=== PATIENT | male | born 1955 | race African-American/Black ===

== ENCOUNTER 2023-12-31 18:33 | Inpatient (IN) | payer OTHER ==
[2023-12-31 19:19] VITALS: BMI 22.3
[2023-12-31] MEDS ORDERED: BENZONATATE 200 MG CAPSULE PO PRN (19:47)
[2023-12-31] MEDS ORDERED: IBUPROFEN 400 MG TABLET (FP) PO PRN (19:47)
[2023-12-31] MEDS ORDERED: IBUPROFEN 600 MG TABLET (FP) PO PRN (19:47)
[2023-12-31] MEDS ORDERED: ACETAMINOPHEN 325 MG TABLET (FP) PO PRN (19:47)
[2023-12-31] MEDS ORDERED: BISMUTH SUBSALICYLATE 524 MG/30 ML PO PRN (19:47)
[2023-12-31] MEDS ORDERED: LOPERAMIDE HCL 2 MG CAPSULE PO PRN (19:47)
[2023-12-31] MEDS ORDERED: guaiFENesin 600 MG TABLET.ER (FP) PO PRN (19:47)
[2023-12-31] MEDS ORDERED: NICOTINE POLACRILEX 2 MG GUM BUC PRN (19:47)
[2023-12-31] MEDS ORDERED: BENZOCAINE/MENTHOL (CHLORASEPTIC ) LOZENGE MM PRN (19:47)
[2023-12-31] MEDS ORDERED: ONDANSETRON *ODT* 4 MG TABLET SL PRN (19:47)
[2023-12-31] MEDS ORDERED: POLYETHYLENE GLYCOL (HEALTHYLAX) 3350 17 GM PACKET PO PRN (19:47)
[2023-12-31] MEDS ORDERED: MAGNESIUM HYDROX 2400MG/30ML ORAL SUSPENSION 30 ML CUP PO PRN (19:47)
[2023-12-31] MEDS ORDERED: NICOTINE POLACRILEX 2 MG LOZENGE BC PRN (19:47)
[2023-12-31] MEDS ORDERED: MAG HYDROX/AL HYDROX/SIMETH 30 ML UNIT-DOSE CUP PO PRN (19:47)
[2023-12-31] MEDS: THIAMINE 100 MG TABLET PO SCH (22:06)
[2023-12-31] MEDS: MELATONIN 5 MG TABLETS PO SCH (22:07)
[2024-01-01] MEDS: HYDROCHLOROTHIAZIDE 12.5 MG CAPSULE (FP) PO SCH (10:35)
[2024-01-01] MEDS: PRENATAL VITAMINS W/ FOLIC ACID TABLET (FP) PO SCH (10:36)
[2024-01-01] MEDS ORDERED: diazePAM 5 MG TABLET PO PRN (10:42)
[2024-01-01] MEDS: cloNIDine HCL 0.1 MG TABLET PO ONE (11:20)
[2024-01-01] MEDS: diazePAM 5 MG TABLET PO SCH (11:20)
[2024-01-01] MEDS: amLODIPine BESYLATE 5 MG TABLET (FP) PO SCH (11:20)
[2024-01-01 11:52] LABS: CHLORIDE 110 mmol/L (98-107); POTASSIUM 3.6 mmol/L (3.5-5.1); SODIUM 144 mmol/L (136-145)
[2024-01-01 12:04] LABS: ALBUMIN 3.8 g/dl (3.4-5.0); ANION GAP 4 mmol/L (4-13); BLOOD UREA NITROGEN 15.4 mg/dL (7-18); CALCIUM 9.1 mg/dL (8.5-10.1); CO2 30 mmol/L (21-32); GLUCOSE,RANDOM 78 mg/dL (74-106)
[2024-01-01 12:07] LABS: CREATININE 1.2 mg/dL (0.55-1.3); HEMATOCRIT 39.7 % (35.4-49); HEMOGLOBIN 13.4 GM/dL (11.7-16.9); MCHC 33.7 g/dl (32.0-35.9); MEAN CELL VOLUME 91.9 fl (80-96); MEAN PLT VOLUME 8.5 fl (7.5-11.1); PLATELET COUNT 129 10^3/uL (134-434); RBC 4.32 M/mm3 (4.00-5.60); RDW 15.3 % (11.9-15.9); SGOT/AST 22 U/L (15-37); SGPT/ALT 27 U/L (13-61); WHITE BLOOD COUNT 5.4 K/mm3 (4.0-10.0)
[2024-01-01 12:09] LABS: BILIRUBIN,TOTAL 0.8 mg/dL (0.2-1); TOT PROT 6.2 g/dl (6.4-8.2)
[2024-01-01 12:10] LABS: ALK PHOS 63 U/L (45-117)
[2024-01-01] MEDS: ATORVASTATIN CA 10 MG TABLET (FP) PO SCH (22:51)
[2024-01-01] MEDS: MIRTAZAPINE 15 MG TABLET (FP) PO SCH (22:51)
[2024-01-02] MEDS: diazePAM 5 MG TABLET PO SCH (17:18)
[2024-01-02] MEDS: cloNIDine HCL 0.1 MG TABLET PO PRN (17:20)
[2024-01-03] MEDS ORDERED: diazePAM 5 MG TABLET PO SCH (06:00)
[2024-01-03] MEDS: diazePAM 5 MG TABLET PO SCH (06:02)
[2024-01-03 06:38] VITALS: PULSE 61; RESP 16
[2024-01-03 09:26] VITALS: BP 146/90; TEMP 97.3
[2024-01-03] MEDS: amLODIPine BESYLATE 10 MG TABLET (FP) PO SCH (09:31)
[2024-01-04] MEDS ORDERED: diazePAM 5 MG TABLET PO SCH ×2 (06:00)
[2024-01-05] MEDS ORDERED: diazePAM 5 MG TABLET PO ONE (06:00)
== END 2024-01-03 10:22 | disposition home or self-care (01) | DRG 897 ==
LOC: EDBD → YASAS 18:33 → Y6N 20:37
PROVIDERS: ADMIT Allergy & Immunology; ATTEND Surgery
PROC: HZ2ZZZZ Detoxification Services for Substance Abuse Treatment (ICD-10-PCS; principal; 2023-12-31)
DX: F10.230 Alcohol dependence with withdrawal, uncomplicated (principal); F14.20 Cocaine dependence, uncomplicated; F16.20 Hallucinogen dependence, uncomplicated; F19.282 Other psychoactive substance dependence with psychoactive substance-induced sleep disorder; F19.280 Other psychoactive substance dependence with psychoactive substance-induced anxiety disorder; F12.20 Cannabis dependence, uncomplicated; F17.210 Nicotine dependence, cigarettes, uncomplicated; E78.5 Hyperlipidemia, unspecified; I10 Essential (primary) hypertension
CPT/HCPCS: 36415; 80053; 80305; 80307; 85027; 86780; 93005; 93010